=== PATIENT | female | born 1990 | race Two or more races ===

== ENCOUNTER → 2019-03-09 | Outpatient (CLI) | payer OTHER ==
--- NOTE | 2019-03-09 14:17 | RAD ---
DATE: 03/09/2019 EXAM: MAMMO BRIAN KI OVIEDOAT, BREAST BILATERAL HISTORY: Skin dimpling under left breast COMPARISON: Baseline study This study was interpreted with the benefit of Computerized Aided Detection (CAD). Breast Density: DENSE The breast parenchyma is dense, which could reduce the sensitivity of mammography. Breast parenchyma level density D. FINDINGS: 2-D and 3-D tomosynthesis imaging was performed in CC and MLO projections. No breast mass is identified. There are minimal benign type calcifications. No suspicious microcalcifications are evident. Benign-appearing lymph node type densities are noted in the left axillary region. Bilateral breast ultrasound, 03/09/2019: Both breasts were carefully scanned. The fibroglandular pattern in both breasts is heterogeneous. No breast mass or abnormal fluid collection is seen. IMPRESSION: 1. Extremely dense breasts. 2. No mammographic or sonographic evidence of malignancy. 3. Clinical surveillance is suggested. BI-RADS 2-benign findings PQRS compliance statement: Patient information was entered into a reminder system with a target due date for the next mammogram. Mammography is a sensitive method for finding small breast cancers, but it does not detect them all and is not a substitute for careful clinical examination. A negative mammogram does not negate a clinically suspicious finding and should not result in delay in biopsying a clinically suspicious abnormality. "Our facility is accredited by the [employer] Mammography Program."
== END | disposition home or self-care (01) ==
LOC: MAMMO 12:45
PROVIDERS: ATTEND Nurse Practitioner Family
DX: R92.2 Inconclusive mammogram (principal)
CPT/HCPCS: 76641; 77066; G0279; 77062